=== PATIENT | male | born 1950 | race Caucasian/White ===

== ENCOUNTER → 2023-03-16 | Outpatient (REF) | payer MEDICARE ==
[2023-03-16 18:23] LABS: APPEARANCE, URINE CLEAR (CLEAR); BACTERIA, URINE AUTO NEGATIVE (NEGATIVE); BILIRUBIN, URINE AUTO NEGATIVE (NEGATIVE); BLOOD, URINE BLOOD 3+ (NEGATIVE); COLOR, URINE YELLOW (YELLOW); GLUCOSE, URINE (UA) AUTO 3+ mg/dL (NEGATIVE); KETONE, URINE AUTO NEGATIVE (NEGATIVE); LEUKOCYTE ESTERASE, URINE AUTO NEGATIVE (NEGATIVE); MUCUS, URINE SMALL (NEGATIVE); NITRITE, URINE AUTO NEGATIVE (NEGATIVE); PROTEIN, URINE AUTO NEGATIVE (NEGATIVE); RBC, URINE AUTO TNTC /HPF (0-3); SPECIFIC GRAVITY URINE AUTO 1.021 (1.002-1.035); SQUAMOUS EPITHELIAL CELL UR AU 0 /HPF (0-6); UROBILINOGEN, URINE AUTO 0.2 mg/dL (0.0-2.0); WBC, URINE AUTO 3 /HPF (0-3)
== END ==
LOC: M SMT 17:07
PROVIDERS: ATTEND Urology
DX: R35.1 Nocturia (principal); D30.3 Benign neoplasm of bladder

== ENCOUNTER → 2023-07-26 | Outpatient (REF) | payer MEDICARE | LOC: M LABSMT 09:14 | PROVIDERS: ATTEND Urology | DX: N40.0 Benign prostatic hyperplasia without lower urinary tract symptoms (principal) ==

== ENCOUNTER 2023-08-18 08:35 | Day surgery (SDC) | payer MEDICARE ==
[~2023-08-18] VITALS: Ht 180.3 cm; Wt 96.6 kg
[~2023-08-18 08:35] MED LIST: ERGO500029 PO; LOSA50TA28 PO; OMEP-173 PO; [UNRECOGNIZED DRUG - OTHER] PO; ceFAZolin SOD 2 GM in IV 1 EA IV ONE
[2023-08-18] MEDS ORDERED: LR 1,000 ML IV SCH (09:05)
[2023-08-18] MEDS ORDERED: propofoL 200 MG/20 ML VIAL As Ordered ONE (09:37)
[2023-08-18] MEDS ORDERED: LIDOCAINE 2% 100MG/5ML SDV (FOR ANES.) As Ordered ONE (09:37)
[2023-08-18] MEDS ORDERED: ONDANSETRON 4MG 2ML VIAL As Ordered ONE (09:37)
[2023-08-18] MEDS ORDERED: fentaNYL 100 MCG/2 ML INJECTION As Ordered ONE (09:39)
[2023-08-18] MEDS ORDERED: MIDAZOLAM INJ 2MG/2ML VIAL As Ordered ONE (09:39)
[2023-08-18] MEDS ORDERED: ACETAMINOPHEN 1000MG 100ML IV BAG As Ordered ONE (10:32)
[2023-08-18] MEDS ORDERED: ONDANSETRON 4MG 2ML VIAL IV PRN (11:15)
[2023-08-18] MEDS ORDERED: MORPHINE 2 MG/ML 1ML VIAL IV PRN (11:15)
[2023-08-18] MEDS ORDERED: fentaNYL 100 MCG/2 ML INJECTION IV PRN (11:15)
[2023-08-18] MEDS ORDERED: oxyCODONE 5MG TAB PO PRN (11:15)
[2023-08-18] MEDS ORDERED: OXYB5TAB14 PO (11:23)
[2023-08-18] MEDS ORDERED: PYRI1TAB5 PO (11:23)
[2023-08-18] MEDS ORDERED: LEVO1TAB39 PO (11:23)
[2023-08-18 13:50] VITALS: BP 150/74; TEMP 97.9; O2SAT 98
== END 2023-08-18 14:00 | disposition home or self-care (01) ==
LOC: M SDC 08:35
PROVIDERS: ATTEND Urology
DX: N40.1 Benign prostatic hyperplasia with lower urinary tract symptoms (principal); E11.9 Type 2 diabetes mellitus without complications; Z88.1 Allergy status to other antibiotic agents; Z79.899 Other long term (current) drug therapy
CPT/HCPCS: 52601; 88305; J0131; J1100; J2250; J2405; J3010